=== PATIENT | male | born 2000 | race Caucasian/White ===

== ENCOUNTER 2019-02-15 14:02 | Emergency (ER) | payer MEDICAID ==
[2019-02-15] MEDS ORDERED: MAG HYDROX/AL HYDROX/SIMETH SUSP 30 ML UDCUP PO ONE (14:45)
[2019-02-15] MEDS ORDERED: METOCLOPRAMIDE HCL ORAL SOLN 10 MG/10 ML UDCUP PO ONE (14:45)
[2019-02-15] MEDS ORDERED: FAMOTIDINE INJ/PF 20 MG/2 ML SDV IV ONE (14:45)
[2019-02-15] MEDS ORDERED: LIDOCAINE 2% VISCOUS SOLN 20 ML UDCUP PO ONE (14:45)
--- NOTE | 2019-02-15 14:49 | ER Document Report ---
ED Medical Screen (RME) - General Chief Complaint: Chest Pain Stated Complaint: CHEST PAIN Time Seen by Provider: 02/15/19 14:39 Notes: Patient is a 18-year-old male with a history of acid reflux who presents to the emergency department today with a chief complaint of chest pain. Patient states that last while at work he developed chest pain. Patient states he does work at [employer] and was not doing any heavy lifting or strenuous activity at the onset of his chest pain. Patient states that specifically located on the right side, nonradiating, and feels like a sharp stabbing pressure that is constant. Patient states this morning when waking up he did vomit once. Patient states he feels like his heartburn is worse than normal despite taking the Prilosec daily. Patient does report some shortness of breath but denies palpitations. Patient denies diarrhea, abdominal pain or fever. TRAVEL OUTSIDE OF THE [place] IN LAST 30 DAYS: No - Related Data Allergies/Adverse Reactions: No Known Allergies Allergy (Unverified 02/15/19 14:07) Physical Exam - Vital signs Vitals: Temp Pulse Resp BP Pulse Ox 98.2 F 90 14 133/76 H 97 02/15/19 14:16 02/15/19 14:16 02/15/19 14:16 02/15/19 14:16 02/15/19 14:16 - Respiratory Respiratory status: No respiratory distress Chest status: Nontender Breath sounds: Normal Chest palpation: Normal - Cardiovascular Rhythm: Regular Heart sounds: Normal auscultation, S1 appreciated, S2 appreciated Course - Re-evaluation Re-evalutation: 02/15/19 14:48 I have greeted and performed a rapid initial assessment of this patient. A comprehensive ED assessment and evaluation of the patient, analysis of test results and completion of the medical decision making process will be conducted by additional ED providers. - Vital Signs Vital signs: Temp Pulse Resp BP Pulse Ox 98.2 F 90 14 133/76 H 97 02/15/19 14:16 02/15/19 14:16 02/15/19 14:16 02/15/19 14:16 02/15/19 14:16
[2019-02-15 14:56] LABS: ABSOLUTE EOSINOPHILS # (AUTO) 0.4 10^3/uL (0.0-0.6); ABSOLUTE LYMPHOCYTES (AUTO) 1.9 10^3/uL (0.5-4.7); ABSOLUTE MONOCYTES (AUTO) 0.4 10^3/uL (0.1-1.4); ABSOLUTE NEUT (AUTO) 2.6 10^3/uL (1.7-8.2); BASOPHILS % (AUTO) 0.4 % (0-2); EOSINOPHILS % (AUTO) 6.9 % (0-6); HEMATOCRIT 43.7 % (37.9-51.0); HEMOGLOBIN 14.8 g/dL (13.5-17.0); LYMPHOCYTES % (AUTO) 36.2 % (13-45); MEAN CORPUSCULAR HEMOGLOBIN 30.3 pg (27.0-33.4); MEAN CORPUSCULAR HGB CONC 33.9 g/dL (32.0-36.0); MEAN CORPUSCULAR VOLUME 89 fl (80-97); MONOCYTES % (AUTO) 7.2 % (3-13); PLATELET COUNT 224 10^3/uL (150-450); RED BLOOD COUNT 4.88 10^6/uL (4.35-5.55); RED CELL DISTRIBUTION WIDTH 12.3 % (11.5-14.0); SEGMENTED NEUTROPHILS % (AUTO) 49.3 % (42-78); TOTAL CELLS COUNTED % (AUTO) 100 %; WHITE BLOOD COUNT 5.4 10^3/uL (4.0-10.5)
[2019-02-15 15:17] LABS: ALBUMIN 4.3 g/dL (3.5-5.0); ALKALINE PHOSPHATASE 70 U/L (38-126); ANION GAP 9 (5-19); ASPARTATE AMINO TRANSFERASE 28 U/L (17-59); BILIRUBIN,DIRECT 0.2 mg/dL (0.0-0.4); BILIRUBIN,TOTAL 0.3 mg/dL (0.2-1.3); BLOOD UREA NITROGEN 14 mg/dL (7-20); CALCIUM 9.5 mg/dL (8.4-10.2); CARBON DIOXIDE 24 mmol/L (22-30); CHLORIDE 106 mmol/L (98-107); GLUCOSE 113 mg/dL (75-110); POTASSIUM 4.2 mmol/L (3.6-5.0); TOTAL PROTEIN 7.1 g/dL (6.3-8.2)
--- NOTE | 2019-02-15 15:18 | RADIOLOGY REPORT (SQ) ---
EXAM DESCRIPTION: CHEST 2 VIEWS COMPLETED DATE/TIME: 02/15/2019 3:07 pm REASON FOR STUDY: chest pain COMPARISON: None. EXAM PARAMETERS: NUMBER OF VIEWS: two views TECHNIQUE: Digital Frontal and Lateral radiographic views of the chest acquired. RADIATION DOSE: NA LIMITATIONS: none FINDINGS: LUNGS AND PLEURA: No opacities, masses or pneumothorax. No pleural effusion. MEDIASTINUM AND HILAR STRUCTURES: No masses or contour abnormalities. HEART AND VASCULAR STRUCTURES: Heart normal size. No evidence for failure. BONES: No acute findings. HARDWARE: None in the chest. OTHER: No other significant finding. IMPRESSION: NO ACUTE RADIOGRAPHIC FINDING IN THE CHEST. TECHNICAL DOCUMENTATION: JOB ID: [id number] [employer]- All Rights Reserved Reading location - IP/workstation name: [email or web address]
--- NOTE | 2019-02-15 15:40 | ER Document Report ---
ED Cardiac - General Chief Complaint: Chest Pain Stated Complaint: CHEST PAIN Time Seen by Provider: 02/15/19 14:39 TRAVEL OUTSIDE OF THE [place] IN LAST 30 DAYS: No - HPI Notes: Patient is a 18-year-old male who presents to the emergency department for evaluation of chest pain. Is been present intermittently since . He describes it as constant, burning, stabbing. It is in the right side of his chest, sometimes in the substernal area. He states when it comes on it lasts about an hour to 2 hours. Nothing seems to make it better or worse. He does admit to frequent heartburn. He states he takes Tums daily. He denies any melena or hematochezia. He states he feels somewhat short of breath and nauseated when the pain is bad. He was treated through triage and has had significant relief. - Related Data Allergies/Adverse Reactions: No Known Allergies Allergy (Unverified 02/15/19 14:07) Home Medications: Daily Tums Past Medical History - General Information source: Patient, Parent - Social History Smoking Status: Current Every Day Smoker Drug Abuse: Marijuana Family History: Other - Depression, father committed suicide in September Patient has suicidal ideation: No Patient has homicidal ideation: No Renal/ Medical History: Denies: Hx Peritoneal Dialysis GI Medical History: Reports: Hx Gastroesophageal Reflux Disease Review of Systems - Review of Systems Constitutional: No symptoms reported EENT: No symptoms reported Cardiovascular: See HPI Respiratory: No symptoms reported Gastrointestinal: See HPI Genitourinary: No symptoms reported Musculoskeletal: No symptoms reported Skin: No symptoms reported Neurological/Psychological: No symptoms reported Physical Exam - Vital signs Vitals: Temp Pulse Resp BP Pulse Ox 98.2 F 90 14 133/76 H 97 02/15/19 14:16 02/15/19 14:16 02/15/19 14:16 02/15/19 14:16 02/15/19 14:16 - Notes Notes: Vital signs reviewed, please refer to chart. Head is normocephalic, atraumatic. Pupils equal round, reactive to light. Neck is supple without meningismus. Heart is regular rate and rhythm. Lungs are clear to auscultation bilaterally. No abnormality to right chest wall, right chest wall is nontender. Abdomen is soft, nontender, normoactive bowel sounds throughout. Extremities without cyanosis, clubbing. Posterior calves are nontender. Peripheral pulses are equal. Skin is warm and dry. Patient is awake, alert, neurological exam is nonfocal. Course - Re-evaluation Re-evalutation: 02/15/19 15:38 Patient presents emergency department for evaluation of right-sided chest pain. My strong suspicion is that this is GI in nature. The patient is counseled to quit smoking. I will also start him on an H2 darlene, as I do not believe he should be taking Tums daily. He does have Medicaid which should help with payment. He is also counseled on dietary changes. He had complete resolution of his symptoms with a GI cocktail and Pepcid here. He is to return to the ED with worsening, otherwise follow-up with primary care this week. - Vital Signs Vital signs: Temp Pulse Resp BP Pulse Ox 98.2 F 90 14 133/76 H 97 02/15/19 14:16 02/15/19 14:16 02/15/19 14:16 02/15/19 14:16 02/15/19 14:16 - Laboratory Result Diagrams: 02/15/19 14:44 02/15/19 14:44 Laboratory results interpreted by me: 02/15/19 02/15/19 14:44 14:44 Eosinophils % 6.9 H Glucose 113 H - Diagnostic Test Radiology reviewed: Reports reviewed Radiology results interpreted by me: 02/15/19 15:38 Chest X-Ray 02/15/19 14:45 IMPRESSION: NO ACUTE RADIOGRAPHIC FINDING IN THE CHEST. - EKG Interpretation by Me Additional EKG results interpreted by me: 02/15/19 15:41 Sinus mechanism with rate of 86 bpm. Normal axis and intervals, no acute ST changes concerning for ischemia or infarction. Discharge - Discharge Clinical Impression: Dyspepsia, Heartburn Chest pain Qualifiers: Chest pain type: unspecified Qualified Code(s): R07.9 - Chest pain, unspecified Condition: Stable Disposition: HOME, SELF-CARE Instructions: Chest Pain of Unclear Cause ([facility]), Reflux Disease (GERD) ([facility]) Additional Instructions: Quit smoking. Avoid spicy and acidic foods. Take Zantac as directed before bed. Follow-up with primary care this week. Return to the emergency department with worsening or new concerning symptoms of any sort. Prescriptions: Ranitidine HCl [Zantac 75] 75 mg PO QHS #30 tablet Forms: Smoking Cessation Education
[2019-02-15 16:14] VITALS: BP 144/96
--- NOTE | 2019-02-15 19:57 | EKG REPORT ---
SEVERITY:- NORMAL ECG - SINUS RHYTHM : Confirmed by: Samantha Dickens MD 15-Feb-2019 19:56:43
== END 2019-02-15 16:15 | disposition home or self-care (01) ==
LOC: ER 14:02
DX: R07.9 Chest pain, unspecified (principal); R10.13 Epigastric pain; Z79.899 Other long term (current) drug therapy; R06.02 Shortness of breath; R11.0 Nausea; F12.10 Cannabis abuse, uncomplicated; F17.200 Nicotine dependence, unspecified, uncomplicated; Z71.6 Tobacco abuse counseling; Z87.19 Personal history of other diseases of the digestive system
CPT/HCPCS: 93005; 36415; 85025; 80053; 84484; 71046; 93010; J3490 ×3; S0028; 99284